=== PATIENT | male | born 1970 | race Caucasian/White ===

== ENCOUNTER 2020-04-14 22:05 | Inpatient (IN) | payer OTHER ==
[~2020-04-14] VITALS: Ht 182.9 cm; Wt 99.8 kg
== END 2020-04-28 17:35 | disposition home or self-care (01) | DRG 330 ==
LOC: SURG 22:05
PROVIDERS: ADMIT Colon & Rectal Surgery; ATTEND Colon & Rectal Surgery
PROC: B54NZZZ Ultrasonography of Left Upper Extremity Veins (ICD-10-PCS; 2020-04-15)
PROC: 05HY33Z Insertion of Infusion Device into Upper Vein, Percutaneous Approach (ICD-10-PCS; 2020-04-16)
PROC: 3E0336Z Introduction of Nutritional Substance into Peripheral Vein, Percutaneous Approach (ICD-10-PCS; 2020-04-16)
PROC: 07TB0ZZ Resection of Mesenteric Lymphatic, Open Approach (ICD-10-PCS; 2020-04-20)
PROC: 0DQH0ZZ Repair Cecum, Open Approach (ICD-10-PCS; 2020-04-20)
PROC: 0DTG0ZZ Resection of Left Large Intestine, Open Approach (ICD-10-PCS; principal; 2020-04-20 15:30)
DX: C18.6 Malignant neoplasm of descending colon (principal); K56.690 Other partial intestinal obstruction; E44.0 Moderate protein-calorie malnutrition; C77.2 Secondary and unspecified malignant neoplasm of intra-abdominal lymph nodes; K91.71 Accidental puncture and laceration of a digestive system organ or structure during a digestive system procedure; D64.9 Anemia, unspecified; E11.9 Type 2 diabetes mellitus without complications; Z79.4 Long term (current) use of insulin

== ENCOUNTER 2020-06-22 05:20 | Day surgery (SDC) | payer OTHER | END 2020-06-22 12:15 | disposition home or self-care (01) | LOC: CIR.AMB 05:20 | PROVIDERS: ATTEND Colon & Rectal Surgery | DX: C18.6 Malignant neoplasm of descending colon (principal); Z20.828 Contact with and (suspected) exposure to other viral communicable diseases | CPT/HCPCS: 36561; C1751 ==

== ENCOUNTER 2020-11-18 07:30 | Day surgery (SDC) | payer OTHER | END 2020-11-18 12:00 | disposition home or self-care (01) | LOC: AMB-ENDOS 07:30 | PROVIDERS: ATTEND Colon & Rectal Surgery | DX: K62.89 Other specified diseases of anus and rectum (principal); K64.2 Third degree hemorrhoids; Z20.822 Contact with and (suspected) exposure to COVID-19 ==

== ENCOUNTER 2021-10-27 07:01 | Day surgery (SDC) | payer OTHER | END 2021-10-27 12:30 | disposition home or self-care (01) | LOC: AMB-ENDOS 07:01 | PROVIDERS: ATTEND Colon & Rectal Surgery | DX: K62.89 Other specified diseases of anus and rectum (principal); K64.0 First degree hemorrhoids; Z20.822 Contact with and (suspected) exposure to COVID-19 ==

== ENCOUNTER 2023-02-06 05:21 | Day surgery (SDC) | payer OTHER | END 2023-02-06 10:00 | disposition home or self-care (01) | LOC: CIR.AMB 05:21 | PROVIDERS: ATTEND Colon & Rectal Surgery | DX: C18.6 Malignant neoplasm of descending colon (principal); Z85.038 Personal history of other malignant neoplasm of large intestine; Z20.822 Contact with and (suspected) exposure to COVID-19; I10 Essential (primary) hypertension ==